=== PATIENT | female | born 1965 | race Caucasian/White ===

== ENCOUNTER → 2017-07-11 | Outpatient (CLI) | payer MEDICAID ==
[~2017-07-11] MED LIST: FLUO20TA25 PO; None at this time
== END | disposition home or self-care (01) ==
LOC: PETCFH 10:34
PROVIDERS: ATTEND Internal Medicine Hematology & Oncology
DX: M17.0 Bilateral primary osteoarthritis of knee (principal); Z85.3 Personal history of malignant neoplasm of breast; Z90.11 Acquired absence of right breast and nipple
CPT/HCPCS: 78306; A9503

== ENCOUNTER → 2017-07-11 | Outpatient (CLI) | payer MEDICAID | END | disposition home or self-care (01) | LOC: STAR 12:32 | PROVIDERS: ATTEND Surgery | DX: Z02.9 Encounter for administrative examinations, unspecified (principal) ==

== ENCOUNTER → 2017-07-15 | Outpatient (CLI) | payer MEDICAID | END | disposition home or self-care (01) | LOC: RAD 13:19 | PROVIDERS: ATTEND Internal Medicine Hematology & Oncology | DX: N20.0 Calculus of kidney (principal); N28.1 Cyst of kidney, acquired; C50.011 Malignant neoplasm of nipple and areola, right female breast | CPT/HCPCS: 71260; 74177 ==

== ENCOUNTER 2017-07-18 08:33 | Day surgery (SDC) | payer MEDICAID ==
[~2017-07-18] VITALS: Ht 167.6 cm; Wt 88.7 kg
[~2017-07-18 08:33] MED LIST changes: +BUPIVACAINE/PF 0.5% ONE
[2017-07-18] MEDS ORDERED: MIDAZOLAM 1 MG/ML, 2ML ONE (08:45)
[2017-07-18] MEDS ORDERED: FENTANYL PF 100 MCG/2ML ONE (08:46)
[2017-07-18] MEDS ORDERED: LACTATED RINGERS 1,000 ML IV SCH (09:09)
[2017-07-18 09:14] VITALS: BP 106/75
[2017-07-18 09:34] LABS: HCG UR OBC PASS
[2017-07-18] MEDS ORDERED: HEPARIN 1,000 UNITS/ML, 10ML ONE (10:03)
[2017-07-18] MEDS ORDERED: HEPARIN 5,000 UNITS/ML, 1ML ONE (10:03)
[2017-07-18] MEDS ORDERED: ONDANSETRON 2MG/ML, 2ML ONE (10:23)
[2017-07-18] MEDS ORDERED: ROCURONIUM 10 MG/ML ONE (10:23)
[2017-07-18] MEDS ORDERED: PROPOFOL 10 MG/ML, 20ML ONE (10:23)
[2017-07-18] MEDS ORDERED: DEXAMETHASONE 4 MG/ML, 1ML ONE (10:23)
[2017-07-18] MEDS ORDERED: hydrALAzine 20 MG/ML, 1ML IV PRN (10:30)
[2017-07-18] MEDS ORDERED: HYDROmorphone 1 MG/ML, 1ML IV PRN (10:30)
[2017-07-18] MEDS ORDERED: MIDAZOLAM 1 MG/ML, 2ML IV PRN (10:30)
[2017-07-18] MEDS ORDERED: PROMETHAZINE 25 MG/ML, 1ML IV PRN (10:30)
[2017-07-18] MEDS ORDERED: LABETALOL 5MG/ML, 20ML IV PRN (10:30)
[2017-07-18] MEDS ORDERED: ONDANSETRON 2MG/ML, 2ML IVPush PRN (10:30)
[2017-07-18] MEDS ORDERED: FENTANYL PF 100 MCG/2ML IV PRN (10:30)
[2017-07-18] MEDS ORDERED: MEPERIDINE/PF 25MG/0.5ML IVPush PRN (10:30)
[2017-07-18] MEDS ORDERED: ACETAMINOPHEN 325 MG TABLET PO PRN (10:30)
[2017-07-18] MEDS ORDERED: OXYcodone 5 MG/5 ML ORAL.SOL UDC PO PRN (10:30)
[2017-07-18] MEDS ORDERED: BUPIVACAINE/PF-EPI 0.5% 1:200K IM ONE (10:41)
[2017-07-18] MEDS ORDERED: ACETAMINOPHEN 650 MG/20.3 ML UDC ONE (11:35)
== END 2017-07-18 13:10 | disposition home or self-care (01) ==
LOC: OUT 08:33
PROVIDERS: ATTEND Surgery
DX: C50.111 Malignant neoplasm of central portion of right female breast (principal); F41.9 Anxiety disorder, unspecified; Z91.048 Other nonmedicinal substance allergy status; Z87.891 Personal history of nicotine dependence
CPT/HCPCS: 36561; 71010; 77001; 81025; C1769; C1788; J1100; J1644; J2250; J2405; J2704; J3010; J3490; J7120

== ENCOUNTER → 2017-07-22 | Outpatient (CLI) | payer MEDICAID ==
[~2017-07-22] MED LIST changes: -BUPIVACAINE/PF 0.5% ONE
== END | disposition home or self-care (01) ==
LOC: CFH 08:28
PROVIDERS: ATTEND Internal Medicine Hematology & Oncology
DX: C50.011 Malignant neoplasm of nipple and areola, right female breast (principal)
CPT/HCPCS: 93306

== ENCOUNTER → 2017-07-22 | Outpatient (CLI) | payer MEDICAID | END | disposition home or self-care (01) | LOC: PETCFH 08:27 | PROVIDERS: ATTEND Internal Medicine Hematology & Oncology | DX: C50.011 Malignant neoplasm of nipple and areola, right female breast (principal) | CPT/HCPCS: 78815; A9552 ==

== ENCOUNTER → 2017-11-15 | Outpatient (CLI) | payer MEDICAID | END | disposition home or self-care (01) | LOC: ROC 13:33 | PROVIDERS: ATTEND Radiology Radiation Oncology | DX: C50.911 Malignant neoplasm of unspecified site of right female breast (principal) | CPT/HCPCS: 99214; G0463 ==

== ENCOUNTER → 2018-02-03 | Outpatient (CLI) | payer MEDICAID | END | disposition home or self-care (01) | LOC: ROC 07:46 | PROVIDERS: ATTEND Radiology Radiation Oncology | DX: C50.911 Malignant neoplasm of unspecified site of right female breast (principal) | CPT/HCPCS: 99213; G0463 ==

== ENCOUNTER → 2018-02-03 | Outpatient (CLI) | payer MEDICAID | LOC: ROC 07:56 | PROVIDERS: ATTEND Radiology Radiation Oncology | DX: Z02.9 Encounter for administrative examinations, unspecified (principal) ==

== ENCOUNTER → 2018-05-05 | Outpatient (CLI) | payer MEDICAID | END | disposition home or self-care (01) | LOC: ROC 09:55 | PROVIDERS: ATTEND Radiology Radiation Oncology | DX: C50.111 Malignant neoplasm of central portion of right female breast (principal) | CPT/HCPCS: 99213; G0463 ==